=== PATIENT | female | born 1995 | race Caucasian/White ===

== ENCOUNTER → 2017-07-07 14:42 | Outpatient (CLI) | payer SELFPAY ==
--- NOTE | 2017-07-07 14:51 | RAD_ITS ---
STUDY: X-RAY - ABDOMEN/PELVIS REASON FOR EXAM: Female, 21 years old. Hematuria, abdominal pain TECHNIQUE: AP supine and upright views of the abdomen and pelvis. COMPARISON: None. FINDINGS: Normal visualized lung bases. There is an abundance of fecal material throughout the colon. There is no demonstrated free abdominal air. The visualized liver, spleen and kidneys are grossly normal in size and morphology. Normal soft tissue structures. Normal visualized osseous structures. RAD/Abdomen Single View IMPRESSION: No acute findings, retained stool noted throughout the colon Electronically Signed: Justice Barone MD at 16:03 EDT , Service support ,
== END ==
LOC: RAD 14:49
PROVIDERS: Family Provider Family Medicine; PCP Family Medicine; Visit Provider Urology
DX: R10.31 Right lower quadrant pain (principal)
CPT/HCPCS: 74018

== ENCOUNTER → 2017-07-31 19:22 | Outpatient (CLI) | payer SELFPAY | PROVIDERS: Visit Provider Nurse Practitioner Adult Health | DX: R82.90 Unspecified abnormal findings in urine (principal) | CPT/HCPCS: 87086; 87088 ==

== ENCOUNTER → 2017-12-29 12:00 | Outpatient (CLI) | payer SELFPAY | LOC: LABSPEC 12:28 | PROVIDERS: Visit Provider Nurse Practitioner Adult Health | DX: R82.99 Other abnormal findings in urine (principal) | CPT/HCPCS: 87077; 87086; 87088; 87186 ==

== ENCOUNTER → 2018-09-04 | Outpatient (CLI) | payer SELFPAY ==
[2018-09-04 10:27] LABS: hCG Titer Quant., Serum 3231 mIU/mL (1-3)
== END | disposition home or self-care (01) ==
PROVIDERS: Referring Provider Nurse Practitioner Adult Health; Visit Provider Nurse Practitioner Adult Health
DX: N91.2 Amenorrhea, unspecified (principal)
CPT/HCPCS: 36415; 84702

== ENCOUNTER 2019-09-21 14:18 | Emergency (ER) | payer MEDICAID, SELFPAY ==
[2019-09-21 14:19] VITALS: BP 118/85; PULSE 99; RESP 18; TEMP 36.6; O2SAT 98; BMI 34.0
--- NOTE | 2019-09-21 14:58 | EKG12_ITS ---
Test Reason : DIZZINESS Blood Pressure : / mmHG Vent. Rate : 089 BPM Atrial Rate : 089 BPM P-R Int : 124 ms QRS Dur : 090 ms QT Int : 366 ms P-R-T Axes : 041 053 060 degrees QTc Int : 445 ms Normal sinus rhythm Normal ECG Confirmed by HERBERTH BARON ([id number]), editor book HOLLAND JIMENES ([id number]) on 09/23/2019 7:37:16 AM Referred By: ANTON Confirmed By:HERBERTH BARON
--- NOTE | 2019-09-21 14:58 | CT_ITS ---
STUDY: CT BRAIN WITHOUT CONTRAST REASON FOR EXAM: Female, 23 years old. Vertigo and nausea RADIATION DOSAGE (If Supplied By Facility): CTDIvol = ( 44.99 ) mGy, DLP = ( 779.24 ) mGycm TECHNIQUE: Transaxial CT imaging of the brain was performed without administration of intravenous contrast material. Individualized dose optimization techniques were used for this CT. COMPARISON: None. FINDINGS: Normal soft tissue structures. Normal calvarium. No visualized dense artery sign. No midline shift or hydrocephalus. Primarily peripherally based coarse calcifications of the pineal gland noted without enlargement or an associated mass, which is a common finding that is not pathologic. Normal size ventricles and extra-axial spaces for the patient''s age. Normal white matter tracts of the cerebral hemispheres. Normal basal ganglia and thalami. Normal brainstem. Normal cerebellum. There is no intracranial hemorrhage. There are no findings of an acute ischemic infarction. Normal visualized paranasal sinuses. CT/Brain/Head without Contrast IMPRESSION: 1. No visualized acute or significant intracranial process. Electronically Signed: Forrest Leblanc MD at 16:44 EDT , Service support ,
--- NOTE | 2019-09-21 15:06 | ED.VIS.GEN ---
History of Present Illness Chief Complaint: Dizziness Informant: Patient Onset: Days Context: Gradual Onset Timing: Intermittent Current Severity: Moderate Maximum Severity: Moderate Narrative: The patient is a 23-year-old female who is otherwise healthy the presents to the emergency department with vertigo. Patient has been in her normal state of health. She states about 6 or 7 days ago, she began to have vertiginous symptoms. She was prescribed meclizine. She states today, she took 1 when she was having vertigo after moving her head quickly. She states it really did not help the symptoms. She took another, but was still feeling rather symptomatic. She denies headache. She denies visual change. She does describe some fullness in both ears, but no persistent tinnitus. She has had no trouble with speech or swallowing. She denies any recent trauma, neck manipulation, or family history of connective tissue disorder. She states that the vertiginous symptoms are brought on with motion. Prior similar symptoms: No Recent Illness/Hospitalization: No Past Medical History - Allergies and Home Meds Allergies/Adverse Reactions: Allergies No Known Allergies Allergy (Verified 09/21/19 14:21) Primary Care Physician: Rosa Barnes,Out of [NON-STAFF] - Prior records reviewed: Yes Past Medical History: None Surgical History: no surgical history Review of Systems General: Denies: Chills, Fever, Sweats Eyes: Denies: Visual changes - bilaterally, Diplopia ENT: Reports: Bilateral ear pain. Denies: Rhinorrhea, Sore throat Cardiovascular: Denies: Chest pain, Palpitations Respiratory: Denies: Dyspnea, Cough, Dyspnea on exertion Gastrointestinal: Reports: Nausea. Denies: Abdominal pain, Vomiting, Diarrhea, Melena, Hematochezia Genitourinary: Denies: Dysuria, Hematuria, Frequency Musculoskeletal: Denies: Back pain, Extremity Pain Skin: Denies: Rash, Wounds Neurological: Denies: Headache, Weakness, Numbness Physical Exam Vital Signs/Narrative: Vital Signs Temp Pulse Resp BP Pulse Ox 09/21/19 14:19 98 F 99 18 118/85 H 98 Inital Vital Signs reviewed: Yes General: Well nourished, Well developed, No Acute Distress Head: Normocephalic, Atraumatic Eyes: Perrl, EOMI ENT: Moist mucous membranes, No rhinorrhea Neck: Supple, Nontender Cardiovascular: Regular rate, Regular rhythm, No murmurs Respiratory: No distress, CTA bilaterally, Chest nontender Abdomen: Soft, Nontender, Nondistended, Normal bowel sounds Back: Nontender, Normal Inspection Extremities: Nontender, No edema Skin: Normal color, No rash Neurological: Alert, Oriented x3, Cranial nerves II-XII grossly intact, Normal Strength, Normal Sensation Psychological: Normal affect, Normal Mood Diagnostic/Tx/Re-eval Clinical Impression(s) from Imaging Studies Brain CT 09/21/19 14:58 IMPRESSION: 1. No visualized acute or significant intracranial process. Electronically Signed: Forrest Leblanc MD at 16:44 EDT , Service support , Abnormal Lab Results 09/21/19 09/21/19 09/21/19 15:26 15:26 15:30 WBC 6.5 RBC 4.65 Hgb 13.5 Hct 42.1 MCV 90.5 MCH 29.0 MCHC 32.1 RDW Std Deviation 43.7 RDW Coeff of Jennifer 13.2 Plt Count 397 MPV 11.4 Immature Gran % (Auto) 0.200 Neut % (Auto) 43.0 L Lymph % (Auto) 46.6 H Mora % (Auto) 7.7 Eos % (Auto) 1.9 Baso % (Auto) 0.6 Absolute Neuts (auto) 2.8 Absolute Lymphs (auto) 3.02 Nucleated RBC % 0 Sodium 141 Potassium 3.6 Chloride 107 Carbon Dioxide 28.0 Anion Gap 6 BUN 9 Creatinine 0.68 Estim Creat Clear Calc 96.26 Est GFR (MDRD) Af Amer 136 Est GFR (MDRD) Non-Af 112 BUN/Creatinine Ratio 13.2 Glucose 93 Calcium 9.4 Urine Test Negative - Medical Decision Making The patient presents with acute dizziness that she describes as a sensation of motion. It is worse when she moves her head. She has no neck pain. She has no other symptoms that are consistent with vertebrobasilar insufficiency or dissection. Metabolic work-up was pursued. Patient was given fluids and antiemetics with improvement of her symptoms. Noncontrast head CT was unremarkable. On reevaluation, she is resting comfortably. The patient ambulates with a steady gait. At this point, I do feel that she is safe for outpatient follow-up. She is comfortable with this plan of care and will be discharged home. Impression 1. Vertigo ED Disposition - Plan for ED Patient: Instructions: ED Vertigo Unspecified Prescriptions: proMETHazine tablet [Phenergan] 25 mg PO Q6H PRN PRN #10 tab PRN Reason: Nausea Prescription Printed Prednisone 10 mg PO UD #33 tab Prescription Printed Diazepam [Valium] 2 mg PO TID PRN PRN #10 tab PRN Reason: Vertigo Prescription Printed Referrals: [facility] Doctor,Out of [NON-STAFF] -
--- NOTE | 2019-09-21 15:16 | NURSING ---
NO OLD EKGS
[2019-09-21] MEDS: 0.9% Normal Saline 1,000 ML 1000 ML IV (15:19)
[2019-09-21] MEDS: proMETHazine 25 MG/ML Syringe 6.25 MG IV (15:20)
[2019-09-21 15:34] VITALS: BP 108/79; PULSE 92; RESP 18; O2SAT 100
[2019-09-21 15:58] LABS: Internal QC Validated? YES +Cl - CLEAR BKGD; Pregnancy, Urine Negative Negative
[2019-09-21 15:59] LABS: Absolute Lymphocyte Count 3.02 X10^3/uL (0.83-4.51); Absolute Neutrophil Count 2.8 X10^3/uL (2.0-7.7); Basophil# 0.04 X10^3/uL; Basophil% 0.6 % (0-1); Eosinophil# 0.12 X10^3/uL; Eosinophils% 1.9 % (0-5); Hematocrit 42.1 % (37-47); Hemoglobin 13.5 g/dL (12.0-15.0); Lymphocyte # 3.02 X10^3/ul (4.0); Lymphocyte % 46.6 % (19-41); Mean Corp Hgb Conc 32.1 g/dL (32-36); Mean Corpuscular Volume 90.5 fL (81-99); Mean Platelet Vol. 11.4 fl (6.2-12.0); Monocyte% 7.7 % (0-10); NRBC Flagged by Analyzer 0 % (0-5); Neutrophil # 2.79 X10^3/uL (2.7-7.7); Platelet Count 397 K/mm3 (150-450); RBC Distribution Width CV 13.2 % (11.6-14.6); RBC Distribution Width SD 43.7 fl (35.1-43.9); Red Blood Count 4.65 M/mm3 (4.2-5.4); White Blood Count 6.5 K/mm3 (4.4-11.0)
[2019-09-21 16:13] LABS: Anion Gap 6 (5-15); BUN 9 mg/dL (7-18); BUN/Creat Ratio 13.2 RATIO (10-20); Calcium,Total 9.4 mg/dL (8.5-10.1); Chloride 107 mmol/L (98-107); Creatinine, Serum 0.68 mg/dL (0.55-1.02); EST Glomerular Filtration Rate 112 mL/min (>60); Est Glom Filt Rate - Afr Amer 136 mL/min (>60); Estimated Creatinine Clearance 96.26 ml/min; Glucose 93 mg/dL (74-106); Potassium 3.6 mmol/L (3.5-5.1); Sodium Level 141 mmol/L (136-145)
[2019-09-21] MEDS: LORazepam 2 MG/ML Syringe 1 MG IV (17:24)
[2019-09-21 17:29] VITALS: BP 104/69; PULSE 88; RESP 20; O2SAT 99
== END 2019-09-21 18:00 | disposition home or self-care (01) ==
LOC: ED 16:55
PROVIDERS: Emergency Provider Emergency Medicine
DX: R42 Dizziness and giddiness (principal)
CPT/HCPCS: 70450; 80048; 81025; 85025; 93005; 96361; 96374; 96375; 99285; J7030; A4216

== ENCOUNTER → 2019-10-11 | Outpatient (CLI) | payer MEDICAID, SELFPAY ==
[2019-09-21 14:19] VITALS: BMI 34.0
--- NOTE | 2019-10-11 16:50 | RAD_ITS ---
STUDY: X-RAY CHEST REASON FOR EXAM: Female, 23 years old. Skin reaction to TB test TECHNIQUE: PA and lateral views of the chest. COMPARISON: None. FINDINGS: The lungs are clear and expanded. There is no demonstrated pleural abnormality. Normal size heart. Normal mediastinum and gray. Normal visualized pulmonary arteries. Normal visualized aortic arch and descending thoracic aorta. Normal visualized thoracic spine. Normal visualized ribs, clavicles, and shoulders. There is no demonstrated abnormality of the visualized soft tissue structures of the upper abdomen. RAD/Chest PA and Lateral IMPRESSION: Normal x-ray examination of the chest. Electronically Signed: Justice Barone MD at 17:34 EDT , Service support ,
[2019-10-12 09:48] LABS: Hepatitis B Surface Antibody Reactive; Rubella IgG 48.6 IU/mL
[2019-10-16 17:45] LABS: Mumps Antibody,IgG 14.7 AU/mL (Immune >10.9); V-Zoster IgG (Immunity) 1692 index (Immune >165)
== END | disposition home or self-care (01) ==
PROVIDERS: Referring Provider Nurse Practitioner Adult Health; Visit Provider Nurse Practitioner Adult Health
DX: R76.11 Nonspecific reaction to tuberculin skin test without active tuberculosis (principal); Z01.84 Encounter for antibody response examination
CPT/HCPCS: 36415; 71046; 86706; 86735; 86762; 86765; 86787

== ENCOUNTER → 2020-12-04 12:16 | Outpatient (CLI) | payer BC, MEDICAID, SELFPAY ==
--- NOTE | 2020-12-04 12:21 | RAD_ITS ---
STUDY: X-RAY CHEST REASON FOR EXAM: Female, 25 years old. NONSPECIFIC REACTION TO TB SKIN TEST WO ACTIVE TB TECHNIQUE: PA and lateral views of the chest. COMPARISON: Comparison is made with prior study dated 10/11/2019. FINDINGS: The lungs are clear and expanded. There is no demonstrated pleural abnormality. Normal size heart. Normal mediastinum and gray. Normal visualized pulmonary arteries. Normal visualized aortic arch and descending thoracic aorta. Normal visualized thoracic spine. Normal visualized ribs, clavicles, and shoulders. There is no demonstrated abnormality of the visualized soft tissue structures of the upper abdomen. RAD/Chest PA and Lateral IMPRESSION: Normal x-ray examination of the chest. Electronically Signed: Gasper Saini MD at 14:08 EDT , Service support ,
== END ==
PROVIDERS: Referring Provider Urology; Visit Provider Urology
DX: R76.11 Nonspecific reaction to tuberculin skin test without active tuberculosis (principal)
CPT/HCPCS: 71046